=== PATIENT | female | born 1960 | race Caucasian/White ===

== ENCOUNTER → 2017-06-11 | Outpatient (CLI) | payer MEDICAID ==
[~2017-06-11] MED LIST: BENICAR HCT 12.1 TAB PO; BUPROPION HCL300 MG PO; DULOXETINE60 MG PO; FLEXERIL10 MG PO; GABAPENTIN800 MG PO; HYDROCHLOROTHIA25 M1 PO; LORTAB 5/500 501 TAB PO; LOSARTAN POTAS100 MG PO; LOSARTAN POTASS1 TA1 PO; MEDROL 4MG. DOSE4 MG PO; MELOXICAM15 MG PO; MOTRIN600 M1 PO; NAPROSYN500 M1 PO; NOMEDS; OMNICEF 300 MG300 MG PO; PREDNISONE20 MG PO; ROBAXIN-750750 MG PO; TRAMADOL 50MG T50 MG PO; VERAPAMIL HCL120 M2 PO; VITAMIN B COMPL1 CAP PO; VITAMIN D50000 I1 PO
--- NOTE | 2017-06-11 14:01 | RADIOLOGY REPORT PS360 ---
EXAM: LUMBAR SPINE 5 VIEWS HISTORY: Low back pain with numbness in the left foot and ankle LUMBAR NEURALGIA ORDERING PHYSICIAN: Constantin Call MD PATIENT AGE: 56 years COMPARISON: None FINDINGS: Degenerative disc disease is present at T11-T12 and T12-L1 as well as L1-L2, L4-L5, and L5-S1. There are small endplate osteophytes along the lower thoracic spine and at L 3. L4. No fracture or dislocation evident. No lytic or blastic change. There are mild facet arthritic changes at L5-S1. Mild osteoarthritic change involves the right SI joint. IMPRESSION: 1. Lumbar spondylosis with degenerative disc disease and facet arthritic change as described above. 2. 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
== END ==
LOC: RAD 12:49
DX: M54.16 Radiculopathy, lumbar region (principal)

== ENCOUNTER 2017-06-21 11:06 | Emergency (ER) | payer MEDICAID ==
[~2017-06-21] VITALS: Ht 157.5 cm; Wt 99.8 kg
[~2017-06-21 11:06] MED LIST changes: -BUPROPION HCL300 MG PO; -DULOXETINE60 MG PO; -GABAPENTIN800 MG PO; -LOSARTAN POTASS1 TA1 PO; -MELOXICAM15 MG PO; -NAPROSYN500 M1 PO; -ROBAXIN-750750 MG PO; -VERAPAMIL HCL120 M2 PO; -VITAMIN B COMPL1 CAP PO; -VITAMIN D50000 I1 PO
[2017-06-21] MEDS ORDERED: BUPROPION HCL300 MG PO (11:17)
[2017-06-21] MEDS ORDERED: MELOXICAM15 MG PO (11:17)
[2017-06-21] MEDS ORDERED: LOSARTAN POTASS1 TA1 PO (11:18)
[2017-06-21] MEDS ORDERED: VITAMIN D50000 I1 PO (11:18)
[2017-06-21] MEDS ORDERED: VERAPAMIL HCL120 M2 PO (11:18)
[2017-06-21] MEDS ORDERED: DULOXETINE60 MG PO (11:18)
[2017-06-21] MEDS ORDERED: GABAPENTIN800 MG PO (11:19)
[2017-06-21] MEDS ORDERED: TRAMADOL 50MG T50 MG PO (11:19)
--- OUTSIDE RECORDS SUMMARY | 2017-06-21 11:40 | External Medical Summary Rpt | CCD ---
Author Author , ANIKET MARCIAL Address Unknown Phone Care Team Providers Care Inspector [employer] Name Role Phone [employer] Unavailable Unavailable INC, [employer] Unavailable Unavailable INC, [employer] MARY HERNANDEZ Unavailable Unavailable [facility] Un[place]available [place], [facility] Unavailable Unavailable [place], [facility], Unavailable Unavailable [facility] Unavailable Unavailable [facility], [facility] Unavailable Unavailable Capo Leon MD, Unavailable Unavailable Capo Leon MD Purpose Continuity of Care Document - 04-04-2013 through 2016 Problems Code Diagnosis DOS Provider Status [id number] RADICULOPAT 05-13-2017 [facility] M797 FIBROMYALGI 05-13-2017 [facility] Z23 ENCOUNTER 05-13-2017 [facility] [place] [facility] IMMUNIZATIO INTERNAL N MED J029 ACUTE 01-07-2017 [facility] PHARYNGITIS [place] [facility] UNSPECIFIED MED D649 ANEMIA 12-17-2016 [facility] [place] E559 VITAMIN D 12-17-2016 [facility] DEFICIENCY [facility] UNSPECIFIED [place] E785 HYPERLIPIDE 12-17-2016 [facility] BILL [facility] UNSPECIFIED LA [id number] OTHER 11-06-2016 [facility] [employer] [facility] TENOSYNOVIT IS LEFT HAND M654 RADIAL 10-28-2016 [facility] ST[facility]ID [facility] TENOSYNOVIT GROUP IS SINGH I10 ESSENTIAL 06-26-2016 [facility] HYPERTENSIO [place] N [id number] Active [facility] [id number] Chronic [facility] Allergies, Adverse Reactions, Alerts Type Drug Allergy Adverse Reaction to Substance Substance Reaction Severity No Known Allergies - Unknown Unknown Nka Medications Na ND Rx Da Fi Fi Am Da Di Ph RX Ph St me C No te ll ll ou ys ag ar # ys at rm s nt no ma ic us Or Da si cy ia de te s n re d 69 09 10 8. 24 00 KE Ac T 45 -1 -0 00 00 NT ti D2 20 0- 6- 0 00 UC ve 15 20 20 88 [place] 1. 12 17 17 49 25 0 02 CV S MG PH AR (5 MA 0, CY 00 0 LL UN C, IT ) DB A CV S PH AR MA CY #0 54 37 GA 65 09 10 90 30 00 KE Ac BA 86 -1 -0 .0 00 NT ti PE 20 3- 6- 00 00 UC ve NT 52 20 20 91 [place] IN 40 17 17 50 5 94 CV 80 S 0 PH MG AR MA TA CY BL ET LL C, DB A CV S PH AR MA CY #0 54 37 TR 00 09 10 12 30 00 KE Ac AM 09 -1 -0 0. 00 NT ti AD 30 3- 6- 00 00 UC ve OL 05 20 20 0 91 [place] 80 17 17 50 HC 5 95 CV L S 50 PH AR MG MA CY TA BL LL ET C, DB A CV S PH AR MA CY #0 54 37 VE 00 09 09 30 30 00 KE Ac RA 37 -0 -2 .0 00 NT ti PA 82 3- 9- 00 00 UC ve AR 12 20 20 89 [place] L 00 17 17 51 ER 1 83 CV S 12 PH 0 AR MG MA CY TA BL LL ET C, DB A CV S PH AR MA CY #0 54 37 DU 66 09 09 30 30 00 KE Ac LO 99 -0 -2 .0 00 NT ti XE 30 3- 9- 00 00 UC ve TI 66 20 20 91 [place] NE 43 17 17 28 0 39 CV HC S L PH DR AR MA 60 CY MG LL C, CA P DB A CV S PH AR MA CY #0 54 37 BU 10 09 09 30 30 00 KE Ac HI 37 -0 -2 .0 00 NT ti OP 00 3- 9- 00 00 UC ve IO 10 20 20 91 [place] N 25 17 17 28 HC 0 40 CV L S XL PH AR 30 MA 0 CY MG LL TA C, BL ET DB A CV S PH AR MA CY #0 54 37 GA 65 08 09 90 30 00 KE Ac BA 86 -1 -0 .0 00 NT ti PE 20 1- 8- 00 00 UC ve NT 52 20 20 90 [place] IN 40 17 17 82 5 60 CV 80 S 0 PH MG AR MA TA CY BL ET LL C, DB A CV S PH AR MA CY #0 54 37 69 08 09 8. 24 00 KE Ac T 45 -1 -0 00 00 NT ti D2 20 6- 8- 0 00 UC ve 15 20 20 88 [place] 1. 12 17 17 49 25 0 02 CV S MG PH AR (5 MA 0, CY 00 0 LL UN C, IT ) DB A CV S PH AR MA CY #0 54 37 BU 10 08 09 30 30 00 KE Ac HI 37 -0 -0 .0 00 NT ti OP 00 6- 1- 00 00 UC ve IO 10 20 20 89 [place] N 25 17 17 23 HC 0 43 CV L S XL PH AR 30 MA 0 CY MG LL TA C, BL ET DB A CV S PH AR MA CY #0 54 37 DU 66 08 09 30 30 00 KE Ac LO 99 -0 -0 .0 00 NT ti XE 30 6- 1- 00 00 UC ve TI 66 20 20 89 [place] NE 43 17 17 05 0 90 CV HC S L PH DR AR MA 60 CY MG LL C, CA P DB A CV S PH AR MA CY #0 54 37 VE 00 08 09 30 30 00 KE Ac RA 37 -0 -0 .0 00 NT ti PA 82 6- 1- 00 00 UC ve AR 12 20 20 89 [place] L 00 17 17 51 ER 1 83 CV S 12 PH 0 AR MG MA CY TA BL LL ET C, DB A CV S PH AR MA CY #0 54 37 TR 00 07 08 12 30 00 KE Ac AM 09 -2 -2 0. 00 NT ti AD 30 8- 5- 00 00 UC ve OL 05 20 20 0 90 [place] 80 17 17 56 HC 5 41 CV L S 50 PH AR MG MA CY TA BL LL ET C, DB A CV S PH AR MA CY #0 54 37 ME 69 07 08 90 90 00 KE Ac LO 09 -2 -1 .0 00 NT ti XI 70 6- 8- 00 00 UC ve CA 15 20 20 88 [place] M 90 17 17 72 15 7 21 CV S MG PH AR TA MA BL CY ET LL C, DB A CV S PH AR MA CY #0 54 37 69 07 08 8. 24 00 KE Ac T 45 -2 -1 00 00 NT ti D2 20 0- 8- 0 00 UC ve 15 20 20 88 [place] 1. 12 17 17 49 25 0 02 CV S MG PH AR (5 MA 0, CY 00 0 LL UN C, IT ) DB A CV S PH AR MA CY #0 54 37 LO 68 07 08 90 90 00 KE Ac SA 18 -1 -0 .0 00 NT ti RT 00 1- 4- 00 00 UC ve AN 21 20 20 90 [place] -H [address] 9 55 CV Z S 10 PH 0- AR 25 MA CY MG LL TA C, B DB A CV S PH AR MA CY #0 54 37 VE 00 07 08 30 30 00 KE Ac RA 37 -0 -0 .0 00 NT ti PA 82 9- 4- 00 UC ve AR 12 20 20 89 [place] L 00 17 17 51 ER 1 83 CV S 12 PH 0 AR MG MA CY TA BL LL ET C, DB A CV S PH AR MA CY #0 54 37 BU 10 07 08 30 30 00 KE Ac HI 37 -0 -0 .0 00 NT ti OP 00 9- - 00 UC ve IO 10 20 20 89 [place] N 25 17 17 23 HC 0 43 CV L S XL PH AR 30 MA 0 CY MG LL TA C, BL ET DB A CV S PH AR MA CY #0 54 37 DU 66 07 08 30 30 00 KE Ac LO 99 -0 -0 .0 00 NT ti XE 30 9- - 00 UC ve TI 66 20 20 89 [place] NE 43 17 17 05 0 90 CV HC S L PH DR AR MA 60 CY MG LL C, CA P DB A CV S PH AR MA CY #0 54 37 69 06 07 8. 24 00 KE Ac T 45 -2 -2 00 00 NT ti D2 20 2- 1- 0 00 UC ve 15 20 20 88 [place] 1. 12 17 17 49 25 0 02 CV S MG PH AR (5 MA 0, CY 00 0 LL UN C, IT ) DB A CV S PH AR MA CY #0 54 37 BU 10 06 07 30 30 00 KE Ac HI 37 -1 -0 .0 00 NT ti OP 00 4- 7- 00 00 UC ve IO 10 20 20 89 [place] N 25 17 17 23 HC 0 43 CV L S XL PH AR 30 MA 0 CY MG LL TA C, BL ET DB A CV S PH AR MA CY #0 54 37 DU 66 06 07 30 30 00 KE Ac LO 99 -1 -0 .0 00 NT ti XE 30 4- 7- 00 00 UC ve TI 66 20 20 89 [place] NE 43 17 17 05 0 90 CV HC S L PH DR AR MA 60 CY MG LL C, CA P DB A CV S PH AR MA CY #0 54 37 VE 68 06 06 30 30 00 KE Ac RA 46 -0 -3 .0 00 NT ti PA 20 4- 0- 00 00 UC ve AR 29 20 20 89 [place] L 20 17 17 51 ER 1 83 CV S 12 PH 0 AR MG MA CY TA BL LL ET C, DB A CV S PH AR MA CY #0 54 37 69 05 06 8. 24 00 KE Ac T 45 -2 -2 00 00 NT ti D2 20 7- 3- 0 00 UC ve 15 20 20 88 [place] 1. 12 17 17 49 25 0 02 CV S MG PH AR (5 MA 0, CY 00 0 LL UN C, IT ) DB A CV S PH AR MA CY #0 54 37 BU 10 05 06 30 30 00 KE Ac HI 37 -1 -1 .0 00 NT ti OP 00 9- 6- 00 00 UC ve IO 10 20 20 89 [place] N 25 17 17 23 HC 0 43 CV L S XL PH AR 30 MA 0 CY MG LL TA C, BL ET DB A CV S PH AR MA CY #0 54 37 TR 00 05 06 12 30 00 KE Ac AM 09 -1 -1 0. 00 NT ti AD 30 9- 6- 00 00 UC ve OL 05 20 20 0 89 [place] 80 17 17 23 HC 5 98 CV L S 50 PH AR MG MA CY TA BL LL ET C, DB A CV S PH AR MA CY #0 54 37 69 05 06 8. 24 00 KE Ac T 45 -0 -0 00 00 NT ti D2 20 6- 2- 0 00 UC ve 15 20 20 88 [place] 1. 12 17 17 49 25 0 02 CV S MG PH AR (5 MA 0, CY 00 0 LL UN C, IT ) DB A CV S PH AR MA CY #0 54 37 TR 50 05 06 30 30 00 KE Ac AZ 11 -0 -0 .0 00 NT ti OD 10 5- 2- 00 00 UC ve ON 44 20 20 86 [place] E 10 17 17 75 15 1 63 CV 0 S MG PH AR TA MA BL CY ET LL C, DB A CV S PH AR MA CY #0 54 37 VE 68 05 06 30 30 00 KE Ac RA 46 -0 -0 .0 00 NT ti PA 20 8- 2- 00 00 UC ve AR 29 20 20 87 [place] L 20 17 17 71 ER 1 37 CV S 12 PH 0 AR MG MA CY TA BL LL ET C, DB A CV S PH AR MA CY #0 54 37 GA 65 05 06 90 30 00 KE Ac BA 86 -0 -0 .0 00 NT ti PE 20 5- 2- 00 00 UC ve NT 52 20 20 87 [place] IN 40 17 17 71 5 36 CV 80 S 0 PH MG AR MA TA CY BL ET LL C, DB A CV S PH AR MA CY #0 54 37 PE 00 05 06 21 7 00 KE Ac NI 09 -1 -0 .0 00 NT ti CI 31 0- 2- 00 00 UC ve LL 17 20 20 89 [place] IN 41 17 17 05 0 89 CV VK S PH 50 AR 0 MA MG CY TA LL BL C, ET DB A CV S PH AR MA CY #0 54 37 DU 66 05 06 30 30 00 KE Ac LO 99 -1 -0 .0 00 NT ti XE 30 0- 2- 00 00 UC ve TI 66 20 20 89 [place] NE 43 17 17 05 0 90 CV HC S L PH DR AR MA 60 CY MG LL C, CA P DB A CV S PH AR MA CY #0 54 37 ME 69 04 05 90 90 00 KE Ac LO 09 -2 -1 .0 00 NT ti XI 70 4- 9- 00 00 UC ve CA 15 20 20 88 [place] M 90 17 17 72 15 7 21 CV S MG PH AR TA MA BL CY ET LL C, DB A CV S PH AR MA CY #0 54 37 DU 66 04 05 30 30 00 KE Ac LO 99 -1 -1 .0 00 NT ti XE 30 3- 2- 00 00 UC ve TI 66 20 20 88 [place] NE 43 17 17 48 0 81 CV HC S L PH DR AR MA 60 CY MG LL C, CA P DB A CV S PH AR MA CY #0 54 37 GA 65 04 05 90 30 00 KE Ac BA 86 -0 -0 .0 00 NT ti PE 20 6- 5- 00 00 UC ve NT 52 20 20 87 [place] IN 40 17 17 71 5 36 CV 80 S 0 PH MG AR MA TA CY BL ET LL C, DB A CV S PH AR MA CY #0 54 37 LO 68 04 05 90 90 00 KE Ac SA 18 -0 -0 .0 00 NT ti RT 00 6- 5- 00 00 UC ve AN 21 20 20 86 [place] -H [address] 9 13 CV Z S 10 PH 0- AR 25 MA CY MG LL TA C, B DB A CV S PH AR MA CY #0 54 37 VE 68 04 05 30 30 00 KE Ac RA 46 -0 -0 .0 00 NT ti PA 20 6- 5- 00 00 UC ve AR 29 20 20 87 [place] L 20 17 17 71 ER 1 37 CV S 12 PH 0 AR MG MA CY TA BL LL ET C, DB A CV S PH AR MA CY #0 54 37 BU 10 04 05 30 30 00 KE Ac HI 37 -1 -0 .0 00 NT ti OP 00 2- 5- 00 00 UC ve IO 10 20 20 87 [place] N 25 17 17 84 HC 0 28 CV L S XL PH AR 30 MA 0 CY MG LL TA C, BL ET DB A CV S PH AR MA CY #0 54 37 69 04 05 8. 24 00 KE Ac T 45 -1 -0 00 00 NT ti D2 20 2- 5- 0 00 UC ve 15 20 20 88 [place] 1. 12 17 17 49 25 0 02 CV S MG PH AR (5 MA 0, CY 00 0 LL UN C, IT ) DB A CV S PH AR MA CY #0 54 37 TR 00 03 04 12 30 00 KE Ac AM 09 -2 -2 0. 00 NT ti AD 30 3- 8- 00 00 UC ve OL 05 20 20 0 88 [place] 80 17 17 03 HC 5 95 CV L S 50 PH AR MG MA CY TA BL LL ET C, DB A CV S PH AR MA CY #0 54 37 TR 50 03 04 30 30 00 KE Ac AZ 11 -2 -2 .0 00 NT ti OD 10 9- 1- 00 00 UC ve ON 44 20 20 86 [place] E 10 17 17 75 15 1 63 CV 0 S MG PH AR TA MA BL CY ET LL C, DB A CV S PH AR MA CY #0 54 37 BU 10 03 04 30 30 00 KE Ac HI 37 -1 -0 .0 00 NT ti OP 00 4- 7- 00 00 UC ve IO 10 20 20 87 [place] N 25 17 17 84 HC 0 28 CV L S XL PH AR 30 MA 0 CY MG LL TA C, BL ET DB A CV S PH AR MA CY #0 54 37 GA 65 03 03 90 30 00 KE Ac BA 86 -0 -3 .0 00 NT ti PE 20 8- 1- 00 00 UC ve NT 52 20 20 87 [place] IN 40 17 17 71 5 36 CV 80 S 0 PH MG AR MA TA CY BL ET LL C, DB A CV S PH AR MA CY #0 54 37 VE 00 03 03 30 30 00 KE Ac RA 37 -0 -3 .0 00 NT ti PA 82 8- 1- 00 00 UC ve AR 12 20 20 87 [place] L 00 17 17 71 ER 1 37 CV S 12 PH 0 AR MG MA CY TA BL LL ET C, DB A CV S PH AR MA CY #0 54 37 IB 67 02 03 30 8 00 KE Ac UP 87 -1 -1 .0 00 NT ti RO 70 6- 7- 00 00 UC ve FE 32 20 20 87 [place] N 00 17 17 28 60 5 42 CV 0 S MG PH AR TA MA BL CY ET LL C, DB A CV S PH AR MA CY #0 54 37 TR 50 02 03 30 30 00 KE Ac AZ 11 -2 -1 .0 00 NT ti OD 10 1- 7- 00 00 UC ve ON 44 20 20 86 [place] E 10 17 17 75 15 1 63 CV 0 S MG PH AR TA MA BL CY ET LL C, DB A CV S PH AR MA CY #0 54 37 TR 00 02 03 12 30 00 KE Ac AM 09 -2 -1 0. 00 NT ti AD 30 1- 7- 00 00 UC ve OL 05 20 20 0 87 [place] 80 17 17 37 HC 5 53 CV L S 50 PH AR MG MA CY TA BL LL ET C, DB A CV S PH AR MA CY #0 54 37 HY 00 02 03 [address] 60 -1 -1 .0 00 NT ti OC 33 6- 7- 00 00 UC ve OD 89 20 20 87 [place] ON 12 17 17 28 -A 1 41 CV CE S TA PH AR AR NO MA PH CY 7. LL 5- C, 32 5 DB A CV S PH AR MA CY #0 54 37 BU 10 02 03 30 30 00 KE Ac HI 37 -1 -1 .0 00 NT ti OP 00 5- 0- 00 00 UC ve IO 10 20 20 86 [place] N 25 17 17 03 HC 0 13 CV L S XL PH AR 30 MA 0 CY MG LL TA C, BL ET DB A CV S PH AR MA CY #0 54 37 VE 00 02 03 30 30 00 KE Ac RA 37 -0 -0 .0 00 NT ti PA 82 8- 3- 00 00 UC ve AR 12 20 20 86 [place] L 00 17 17 45 ER 1 12 CV S 12 PH 0 AR MG MA CY TA BL LL ET C, DB A CV S PH AR MA CY #0 54 37 GA 68 02 03 90 30 00 KE Ac BA 46 -0 -0 .0 00 NT ti PE 20 8- 3- 00 00 UC ve NT 12 20 20 86 [place] IN 70 17 17 45 5 10 CV 80 S 0 PH MG AR MA TA CY BL ET LL C, DB A CV S PH AR MA CY #0 54 37 AD 49 01 02 0. 1 00 KE Ac AC 28 -2 -1 50 00 NT ti EL 10 0- 7- 0 00 UC ve 40 20 20 86 [place] TD 01 17 17 68 AP 5 02 CV S SY PH RI AR NG MA E CY LL C, DB A CV S PH AR MA CY #0 54 37 TR 50 01 02 30 30 00 KE Ac AZ 11 -2 -1 .0 00 NT ti OD 10 3- 7- 00 00 UC ve ON 44 20 20 86 [place] E 10 17 17 75 15 1 63 CV 0 S MG PH AR TA MA BL CY ET LL C, DB A CV S PH AR MA CY #0 54 37 BU 10 01 02 30 30 00 KE Ac HI 37 -1 -1 .0 00 NT ti OP 00 9- 7- 00 00 UC ve IO 10 20 20 86 [place] N 25 17 17 03 HC 0 13 CV L S XL PH AR 30 MA 0 CY MG LL TA C, BL ET DB A CV S PH AR MA CY #0 54 37 ME 69 01 02 90 90 00 KE Ac LO 09 -1 -1 .0 00 NT ti XI 70 7- 0- 00 00 UC ve CA 15 20 20 86 [place] M 90 17 17 62 15 7 12 CV S MG PH AR TA MA BL CY ET LL C, DB A CV S PH AR MA CY #0 54 37 GA 69 01 02 90 30 00 KE Ac BA 36 -0 -0 .0 00 NT ti PE 70 9- 3- 00 00 UC ve NT 13 20 20 86 [place] IN 50 17 17 45 6 10 CV 80 S 0 PH MG AR MA TA CY BL ET LL C, DB A CV S PH AR MA CY #0 54 37 VE 00 01 02 30 30 00 KE Ac RA 37 -0 -0 .0 00 NT ti PA 82 9- 3- 00 00 UC ve AR 12 20 20 86 [place] L 00 17 17 45 ER 1 12 CV S 12 PH 0 AR MG MA CY TA BL LL ET C, DB A CV S PH AR MA CY #0 54 37 LO 68 01 02 90 90 00 KE Ac SA 18 -0 -0 .0 00 NT ti RT 00 3 00 UC ve AN 21 20 20 86 [place] -H [address] 9 13 CV Z S 10 PH 0- AR 25 MA CY MG LL TA C, B DB A CV S PH AR MA CY #0 54 37 TR 00 12 01 12 30 00 KE Ac AM 09 -1 -1 0. 00 NT ti AD 30 9- 3 00 UC ve OL 05 20 20 0 86 [place] 80 16 17 03 HC 5 21 CV L S 50 PH AR MG MA CY TA BL LL ET C, DB A CV S PH AR MA CY #0 54 37 ON 68 12 01 12 30 00 KE Ac DA 46 -1 -1 .0 00 NT ti NS 20 3 00 UC ve ET 10 20 20 86 [place] RO 53 16 17 03 N 0 14 CV HC S L PH 4 AR MG MA CY TA BL LL ET C, DB A CV S PH AR MA CY #0 54 37 BU 10 12 01 30 30 00 KE Ac HI 37 -1 -1 .0 00 NT ti OP 00 3 00 UC ve IO 10 20 20 86 [place] N 25 16 17 03 HC 0 13 CV L S XL PH AR 30 MA 0 CY MG LL TA C, BL ET DB A CV S PH AR MA CY #0 54 37 TR 50 12 01 30 30 00 KE Ac AZ 11 -1 -1 .0 00 NT ti OD 10 9- 3- 00 UC ve ON 44 20 20 86 [place] E 10 16 17 02 15 1 94 CV 0 S MG PH AR TA MA BL CY ET LL C, DB A CV S PH AR MA CY #0 54 37 HI 00 12 01 0. 1 00 KE Ac EV 00 -1 -0 50 00 NT ti NA 51 4- 9- 0 00 UC ve R 97 20 20 85 [place] 13 10 16 17 93 2 23 CV SY S RI PH NG AR E MA CY LL C, DB A CV S PH AR MA CY #0 54 37 VE 00 12 01 30 30 00 WA Ac RA 59 -0 -0 .0 00 L- ti PA 12 07 MA ve AR 88 20 20 44 RT L 00 16 17 54 SR 1 44 PH AR 12 MA 0 CY MG #5 CA 91 PS UL E LO 68 12 01 30 30 00 WA Ac SA 18 -0 -0 .0 00 L- ti RT 00 07 MA ve AN 21 20 20 44 RT -H [address] 9 43 PH Z AR 10 MA 0- CY 25 #5 MG 91 TA B ME 54 12 01 30 30 00 WA Ac LO 45 -0 -0 .0 00 L- ti XI 80 07 MA ve CA 96 20 20 43 RT M 41 16 17 11 15 0 00 PH AR MG MA CY TA BL #5 ET 91 HI 00 08 0 No OH 27 -0 AN 01 6- Lo CE 11 20 ng 14 13 er 27 5 9. Ac 3 ti MG ve /M L SY RI NG E Sa 63 08 1 No li 80 -0 ne 70 5- Lo 10 20 ng Fl 07 13 er us 5 h Ac 10 ti ML ve Sy ri ng e HY [address] 40 -0 OM 91 5- Lo OR 31 20 ng PH 23 13 er ON 0 E Ac 2 ti MG ve /M L CA RP UJ CT CL 51 08 1 No OP 07 -0 ID 90 5- Lo OG 55 20 ng RE 72 13 er L 0 75 Ac ti MG ve TA BL ET MA 00 08 1 No PA 90 -0 P 41 5- Lo 32 98 20 ng 5 26 13 er MG 1 Ac TA ti BL ve ET 66 08 0 No PI 55 -0 RI 30 5- Lo N 00 20 ng 32 10 13 er 5 1 MG Ac ti TA ve BL ET AV 00 08 1 No AP 08 -0 RO 72 5- Lo 77 20 ng 15 23 13 er 0 1 MG Ac ti TA ve BL ET CL 00 08 1 No ON 90 -0 ID 45 5- Lo IN 65 20 ng E 66 13 er HC 1 L Ac 0. ti 1 ve MG TA BL ET Ib 62 08 1 No up 58 -0 ro 40 5- Lo fe 74 20 ng n 70 13 er 60 1 0M Ac G ti Ta ve bl et AP 00 08 1 No AP 40 -0 /H 60 5- Lo YD 36 20 ng RO 56 13 er CO 2 DO Ac NE ti ve 32 5 MG -5 MG Immunization Name Date Rout CVX Reac Dose Comm Prov Is Faci e tion ent ider Refu lity Give sed n IIV4 09-1 158 RHONDA No LICK 3-20 ON ING VACC 17 VALL EY SPLI INTE T RNAL VIRU MED S 0.5 ML DOS FOR IM USE Vital Signs 04-05-2013 17:54 Name Value Interpretat Reference Comment ion Range Body 97.8 [degF] Temperature BP 70 mm[Hg] Diastolic BP Systolic 119 mm[Hg] Heart 83 /min Rate/Pulse Respiratory 20 /min Rate 04-05-2013 15:42 Name Value Interpretat Reference Comment ion Range O2% 97 % 04-04-2013 15:48 Name Value Interpretat Reference Comment ion Range Height 157.48 cm Weight 111.585 kg Measured 04-04-2013 09:54 Name Value Interpretat Reference Comment ion Range Body 98.2 [degF] Temperature BP 93 mm[Hg] Diastolic BP Systolic 153 mm[Hg] Heart 89 /min Rate/Pulse O2% 98 % Respiratory 20 /min Rate Weight 0 [oz_av] Measured Results Labs Lab Lab Date Result Refere Interp Status Commen Order Detail nces retati t Range on COMPREHENSIVE METABOLIC PANEL (04-04-2013 10:05) Glucose 106 74-106 complet 013 mg/dL ed Bld-mCn 10:05 c BUN 15 7-18 complet Bld-mCn 013 mg/dL ed c 10:05 Creat 1.1 0.6-1.0 complet SerPl-m 013 mg/dL ed Cnc 10:05 ESTIMAT 104 50-200 complet ED 013 ML/MIN ed CREATIN 10:05 INE CLEARAN CE GFR 52 59- complet (ESTIMA 013 ML/MIN ed ALFREDO) 10:05 Sodium 138 136-145 complet SerPl-s 013 mmoL/L ed Cnc 10:05 Potassi 3.7 3.5-5.1 complet um 013 mmoL/L ed SerPl-s 10:05 Cnc Chlorid 99 98-107 complet e 013 mmoL/L ed SerPl-s 10:05 Cnc CO2 32 21.0-32 complet SerPl-s 013 mmoL/L .0 ed Cnc 10:05 Calcium 08-05-2 8.9 8.5-10. complet 013 mg/dL 1 ed SerPl-m 10:05 Cnc Prot 7.8 6.4-8.2 complet SerPl-m 013 gm/dL ed Cnc 10:05 Albumin 3.6 3.4-5.0 complet 013 gm/dL ed SerPl-m 10:05 Cnc Globuli 4.2 1.3-3.2 complet n 013 gm/dL ed Ser-mCn 10:05 c Albumin 0.9 UNK 1.1-1.8 complet /Glob 013 ed SerPl-m 10:05 Rto Bilirub 0.7 0.2-1.0 complet 013 mg/dL ed SerPl-m 10:05 Cnc AST 17 U/L 15-37 complet SerPl-c 013 ed Cnc 10:05 ALT 57 U/L 30-65 complet SerPl-c 013 ed Cnc 10:05 ALP 79 U/L 50-136 complet SerPl-c 013 ed Cnc 10:05 TROPONIN I (04-04-2013 10:05) TROPONI 04-04- Less 0.00-0. complet N I 013 than 06 ed 10:05 0.02 ng/mL THYROID STIM HORMONE (04-04-2013 10:05) THYROID 1.66 0.358-3 complet STIM 013 uIU/ml .740 ed HORMONE 10:05 CBC with AUTO DIFF (04-04-2013 10:05) WBC # 04-04-2 12.5 4.8-10. complet Bld 013 K/MM3 8 ed Auto 10:05 RBC # 04-04-2 4.97 4.2-5.4 complet Bld 013 M/mm3 ed Auto 10:05 Hgb 04-04- 14.5 12.2-16 complet Bld-mCn 013 g/dL .2 ed c 10:05 Hct Fr 44.3 % 37.0-47 complet Bld 013 .0 ed 10:05 MCV RBC 89.2 fl 82.2-97 complet 013 .8 ed 10:05 MCH RBC 29.1 pg 27-31.2 complet Qn 013 ed Auto 10:05 MEAN 08-05-2 32.6 31.8-35 complet CORPUSC 013 g/dl .4 ed ULAR 10:05 HGB CONC RDW RBC 08-05-2 13.9 % 11.5-17 complet Auto 013 .5 ed 10:05 Platele 08-05-2 392 142-424 complet t Bld 013 K/mm3 ed Ql 10:05 Manual MEAN 05-2 7.3 fl 7.4-10. complet PLATELE 013 4 ed T 10:05 VOLUME Granulo 08-05-2 73.7 % 37.0-80 complet cytes 013 .0 ed Fr Bld 10:05 Auto LYMPH % 08-05-2 20.2 % 10-50.0 complet 013 ed 10:05 Monocyt 08-05-2 4.3 % 1.7-9.3 complet es Fr 013 ed Bld 10:05 Auto Eosinop 08-05-2 1.3 % 0.1-12. complet hil Fr 013 0 ed Bld 10:05 Auto Basophi 08-05-2 0.6 % 0.1-2.0 complet ls Fr 013 ed Bld 10:05 Auto Granulo 08-05-2 9.2 1.8-7.8 complet cytes # 013 K/mm3 ed Bld 10:05 Auto Lymphoc 08-05-2 2.5 0.7-4.5 complet ytes Fr 013 K/mm3 ed Bld 10:05 Auto Monocyt 08-05-2 0.5 0.1-1.0 complet es # 013 K/mm3 ed Bld 10:05 Auto Eosinop 08-05-2 0.2 0.0-0.4 complet hil # 013 K/mm3 ed Bld 10:05 Auto Basophi 08-05-2 0.1 0-0.2 complet ls # 013 K/MM3 ed Bld 10:05 Auto Procedures Procedure DOS Code Location Performer Comment IIV4 VACC 46572 [facility] SPLIT 7 [facility] VIRUS 0.5 INTERNAL ML DOS MED FOR IM USE IM ADM 19390 [facility] PRQ ID 7 [facility] SUBQ/IM INTERNAL NJXS 1 MED VACCINE COMPREHEN 49900 COMBINED COMBINED SIVE 7 PHYSICIAN PHYSICIAN METABOLIC S LA S LA PANEL 25 43863 COMBINED COMBINED HYDROXY 7 PHYSICIAN PHYSICIAN INCLUDES S LA S LA FRACTIONS IF PERFORMED LIPID 57101 COMBINED COMBINED PANEL 7 PHYSICIAN PHYSICIAN S [place] S [place] BLOOD 14025 COMBINED COMBINED COUNT 7 PHYSICIAN PHYSICIAN COMPLETE S LA S LA AUTO&AUTO DIFRNTL WBC WRIST [id number] [facility] HAND 7 TECHNOLOG TECHNOLOG FINGR IES INC IES INC ORTHOS W/O JNT PREFAB CSTM FIT COMPREHEN 55046 COMBINED COMBINED SIVE 6 PHYSICIAN PHYSICIAN METABOLIC S LA S LA PANEL LIPID 57121 COMBINED COMBINED PANEL 6 PHYSICIAN PHYSICIAN S LA S LA 25 84995 COMBINED COMBINED HYDROXY 6 PHYSICIAN PHYSICIAN INCLUDES S LA S LA FRACTIONS IF PERFORMED Encounters Encounter Start End Date Code Location Performer Type Date OFFICE 13641 [facility] 7 7 [facility] T VISIT INTERNAL 15 MED MINUTES OFFICE 54726 [facility] 7 7 [facility] T VISIT INTERNAL 15 MED MINUTES OFFICE 91791 [facility] OUT[facility] 7 7 PHYSICIAN T VISIT S GROUP 10 MINUTES Inpatient MARY GRACE Leon ([place]) 3 10:09 3 [facility]
--- OUTSIDE RECORDS SUMMARY | 2017-06-21 11:40 | External Medical Summary Rpt | CCD ---
Author Author , ANIKET MARCIAL Address Unknown Phone Care Team Providers Care World Travel Counselor Name Role Phone [employer] Unavailable Unavailable INC, [employer] Unavailable Unavailable INC, [employer] MARY HERNANDEZ Unavailable Unavailable [facility] [place]available [place], [facility] [place] [facility] Unavailable Unavailable [place], [facility] [place] [facility], Unavailable Unavailable [facility] Unavailable Unavailable INTERNAL [...] N MED J029 ACUTE 01-07-2017 [facility] INTERNAL UNSPECIFIED MED D649 ANEMIA 12-17-2016 [facility] U[place]PECIFIED PHYSICIANS [place] E559 VITAMIN D 12-17-2016 [facility] DEFICIENCY PHYSICIANS UNSPECIFIED [place] E785 HYPERLIPIDE 12-17-2016 [facility] BILL PHYSICIANS UNSPECIFIED LA [id number] OTHER 11-06-2016 [facility] AND S INC TENOSYNOVIT IS LEFT HAND M654 RADIAL 10-28-2016 [facility] STY[facility]YSICIANS TENOSYNOVIT GROUP IS SINGH I10 ESSENTIAL 06-26-2016 [facility] PRIMARY [facility] HYPERTENSIO [place] N [id number] Active [facility] [id number] Chronic [facility] Allergies, Adverse Reactions, Alerts Type Drug Allergy [...] 82 3- 9- 00 00 UC ve CO 12 20 20 89 [place] L 00 [...] 09 09 30 30 00 KE Ac ND 37 -0 -2 .0 00 NT ti [...] 08 09 30 30 00 KE Ac ND 37 -0 -0 .0 00 NT ti [...] 82 6- 1- 00 00 UC ve CO 12 20 20 89 [place] L 00 [...] PA 82 9- 4- 00 UC ve CO 12 20 20 89 [place] L 00 17 17 51 ER 1 83 CV S 12 PH 0 AR MG MA CY TA BL LL ET C, DB A CV S PH AR MA CY #0 54 37 BU 10 07 08 30 30 00 KE Ac ND 37 -0 -0 .0 00 NT ti [...] 06 07 30 30 00 KE Ac ND 37 -1 -0 .0 00 NT ti [...] 20 4- 0- 00 00 UC ve CO 29 20 20 89 [place] L 20 [...] 05 06 30 30 00 KE Ac ND 37 -1 -1 .0 00 NT ti [...] 20 8- 2- 00 00 UC ve CO 29 20 20 87 [place] L 20 [...] 20 6- 5- 00 00 UC ve CO 29 20 20 87 [place] L 20 17 17 71 ER 1 37 CV S 12 PH 0 AR MG MA CY TA BL LL ET C, DB A CV S PH AR MA CY #0 54 37 BU 10 04 05 30 30 00 KE Ac ND 37 -1 -0 .0 00 NT ti [...] 03 04 30 30 00 KE Ac ND 37 -1 -0 .0 00 NT ti [...] 82 8- 1- 00 00 UC ve CO 12 20 20 87 [place] L 00 [...] 1 41 CV CE S TA PH CO AR NO MA PH CY 7. LL 5- C, 32 5 DB A CV S PH AR MA CY #0 54 37 BU 10 02 03 30 30 00 KE Ac ND 37 -1 -1 .0 00 NT ti [...] 82 8- 3- 00 00 UC ve CO 12 20 20 86 [place] L 00 [...] 01 02 30 30 00 KE Ac ND 37 -1 -1 .0 00 NT ti [...] 82 9- 3- 00 00 UC ve CO 12 20 20 86 [place] L 00 [...] 12 01 30 30 00 KE Ac ND 37 -1 -1 .0 00 NT ti [...] PH AR MA CY #0 54 37 ND 00 12 01 0. 1 00 KE [...] L- ti PA 12 07 MA ve CO 88 20 20 44 RT L 00 [...] MA CY TA BL #5 ET 91 ND 00 08 0 No OH 27 -0 [...] DOS Code Location Performer Comment IIV4 VACC 18545 [facility] SPLIT 7 [facility] VIRUS 0.5 INTERNAL ML DOS MED FOR IM USE IM ADM 84965 [facility] PRQ ID 7 [facility] SUBQ/IM INTERNAL NJXS 1 MED VACCINE COMPREHEN 62112 COMBINED COMBINED SIVE 7 PHYSICIAN PHYSICIAN METABOLIC S LA S LA PANEL 25 43254 COMBINED COMBINED HYDROXY 7 PHYSICIAN PHYSICIAN INCLUDES S LA S LA FRACTIONS IF PERFORMED LIPID 52342 COMBINED COMBINED PANEL 7 PHYSICIAN PHYSICIAN S LA S LA BLOOD 41926 COMBINED COMBINED COUNT 7 PHYSICIAN PHYSICIAN COMPLETE S LA S LA AUTO&AUTO DIFRNTL WBC WRIST L3807 [facility]ANCED ADVANCED HAND 7 TECHNOLOG TECHNOLOG FINGR IES INC IES INC ORTHOS W/O JNT PREFAB CSTM FIT COMPREHEN 35239 COMBINED COMBINED SIVE 6 PHYSICIAN PHYSICIAN METABOLIC S LA S LA PANEL LIPID 07527 COMBINED COMBINED PANEL 6 PHYSICIAN PHYSICIAN S LA S LA 25 18571 COMBINED COMBINED HYDROXY 6 PHYSICIAN PHYSICIAN INCLUDES S LA S LA FRACTIONS IF PERFORMED Encounters Encounter Start End Date Code Location Performer Type Date OFFICE 77793 [facility] 7 7 [facility] T VISIT INTERNAL 15 MED MINUTES OFFICE 77860 [facility] 7 7 VALLEY T VISIT INTERNAL 15 MED MINUTES OFFICE 43615 [facility] OUTPATIEN 7 7 PHYSICIAN T VISIT S GROUP 10 MINUTES Inpatient MARY GRACE Leon ([place]) 3 10:09 3 18:00 [facility]
--- OUTSIDE RECORDS SUMMARY | 2017-06-21 11:43 | External Medical Summary Rpt | CCD ---
Author Author , ANIKET MARCIAL Address Unknown Phone [email or web address] Care Team Providers Care Wheel Alignment Technician Name Role Phone [employer] Unavailable Unavailable INC, [employer] Unavailable Unavailable INC, [employer] MARY HERNANDEZ Unavailable Unavailable [facility] [place]available [place], [facility] [place] [facility] Unavailable Unavailable [place], [facility] [place] [facility], Unavailable Unavailable [facility] Unavailable Unavailable [facility], [facility] PETTEY, PETTEWendie Unavailable Unavailable Purpose Continuity of Care Document - 06-26-2016 through 2016 Problems Code Diagnosis DOS Provider Status M5416 RADICULOPAT 05-13-2017 [facility] INTERNAL MED M797 FIBROMYALGI 05-13-2017 [facility] INTER[facility] MED Z23 ENCOUNTER 05-13-2017 [facility] IMMUNIZATIO INTERNAL N MED J029 ACUTE 01-07-2017 [facility] INTERNAL UNSPECIFIED MED D649 ANEMIA 12-17-2016 [facility] UNSPECIFIED PHYSICIANS [place] E559 VITAMIN D 12-17-2016 COM[facility]ED DEFICIENCY PHYSICIANS UNSPECIFIED LA E785 HYPERLIPIDE 12-17-2016 [facility] BILL PHYSICIANS UNSPECIFIED LA [id number] OTHER 11-06-2016 [facility] AND S INC TENOSYNOVIT IS LEFT HAND M654 RADIAL 10-28-2016 [facility] TENOSYNOVIT GROUP IS DE QUERVAIN I10 ESSENTIAL 06-26-2016 [facility] PRIMARY [facility] HYPERTENSIO LA N Medications Na ND Rx Da Fi Fi [...] 82 3- 9- 00 00 UC ve [place] 12 20 20 89 [place] L 00 [...] 09 09 30 30 00 KE Ac MA 37 -0 -2 .0 00 NT ti [...] 08 09 30 30 00 KE Ac MA 37 -0 -0 .0 00 NT ti [...] 82 6- 1- 00 00 UC ve [place] 12 20 20 89 [place] L 00 [...] NT ti PA 82 9- 4- 00 00 UC ve [place] 12 20 20 89 [place] L 00 17 17 51 ER 1 83 CV S 12 PH 0 AR MG MA CY TA BL LL ET C, DB A CV S PH AR MA CY #0 54 37 BU 10 07 08 30 30 00 KE Ac MA 37 -0 -0 .0 00 NT ti OP 00 9- 4- 00 00 UC ve IO 10 20 [...] .0 00 NT ti XE 30 9- 4- 00 00 UC ve TI 66 20 [...] 06 07 30 30 00 KE Ac MA 37 -1 -0 .0 00 NT ti [...] 20 4- 0- 00 00 UC ve OH 29 20 20 89 KY L 20 [...] 05 06 30 30 00 KE Ac MA 37 -1 -1 .0 00 NT ti [...] 20 8- 2- 00 00 UC ve OH 29 20 20 87 [place] L 20 [...] 04 05 30 30 00 KE Ac MA 37 -1 -0 .0 00 NT ti [...] 20 6- 5- 00 00 UC ve [place] 29 20 20 87 [place] L 20 [...] 03 04 30 30 00 KE Ac MA 37 -1 -0 .0 00 NT ti [...] 82 8- 1- 00 00 UC ve [place] 12 20 20 87 [place] L 00 [...] 1 41 CV CE S TA PH OH AR NO MA PH CY 7. LL [...] 02 03 30 30 00 KE Ac MA 37 -1 -1 .0 00 NT ti [...] 82 8- 3- 00 00 UC ve OH 12 20 20 86 [place] L 00 [...] 01 02 30 30 00 KE Ac MA 37 -1 -1 .0 00 NT ti [...] 82 9- 3- 00 00 UC ve OH 12 20 20 86 [place] L 00 17 17 45 ER 1 12 CV S 12 PH 0 AR MG MA CY TA BL LL ET C, DB A CV S PH AR MA CY #0 54 37 LO 68 01 02 90 90 00 KE Ac SA 18 -0 -0 .0 00 NT ti RT 00 9- 3- 00 00 UC ve AN 21 20 20 86 [place] -H [address] 9 13 CV Z S 10 PH 0- AR 25 MA CY MG LL TA C, B DB A CV S PH AR MA CY #0 54 37 TR 50 12 01 30 00 KE Ac AZ 11 -1 -1 .0 00 NT ti OD 10 00 UC ve ON 44 20 20 86 KY E 10 16 17 02 15 1 94 CV 0 S MG PH AR TA MA BL CY ET LL C, DB A CV S PH AR MA CY #0 54 37 BU 10 12 09 29 29 00 KE Ac MA 37 -1 -1 .0 00 NT ti OP 00 00 UC ve IO 10 20 20 86 KY N 25 16 17 03 HC 0 13 CV L S XL PH AR 30 MA 0 CY MG LL TA C, BL ET DB A CV S PH AR MA CY #0 54 37 ON 68 12 09 11 30 00 KE Ac DA 46 -1 -1 .0 00 NT ti NS 20 00 UC ve ET 10 20 20 86 [place] RO 53 16 17 03 N 0 14 CV HC S L PH 4 AR MG MA CY TA BL LL ET C, DB A CV S PH AR MA CY #0 54 37 TR 00 12 09 11 30 00 KE Ac AM 09 -1 -1 0. 00 NT ti AD 30 00 UC ve OL 05 20 20 0 86 [place] 80 16 17 03 HC 5 21 CV L S 50 PH AR MG MA CY TA BL LL ET C, DB A CV S PH AR MA CY #0 54 37 VE 00 12 09 29 30 00 WA Ac RA 59 -0 -0 .0 00 L- ti PA 12 07 MA ve OH 88 20 20 44 RT L 00 16 17 54 SR 1 44 PH AR 12 MA 0 CY MG #5 CA 91 PS UL E LO 68 12 09 29 29 00 WV Ac SA 18 -0 -0 .0 00 L- ti RT 00 07 MA ve AN 21 20 20 44 RT -H [address] 9 43 PH Z AR 10 MA 0- CY 25 #5 MG 91 TA B ME 54 12 09 29 30 00 WA Ac LO 45 -0 -0 .0 00 L- ti XI 80 07 MA ve CA 96 20 20 43 RT M 41 16 17 11 15 0 00 PH AR MG MA CY TA BL #5 ET 91 MA 00 12 01 0. 1 00 KE Ac EV 00 -1 -0 50 00 NT ti NA 51 4- 9- 0 00 UC ve R 97 20 20 85 [place] 13 10 16 17 93 2 23 CV SY S RI PH NG AR E MA CY LL C, DB A CV S PH AR MA CY #0 54 37 Immunization Name Date Rout CVX Reac Dose Comm Prov Is Faci e tion ent ider Refu lity Give sed n IIV4 05-01 158 RHONDA No LICK 3-20 ON ING VACC 17 VALL EY SPLI INTE T RNAL VIRU MED S 0.5 ML DOS FOR IM USE Procedures Procedure DOS Code Location Performer Comment IIV4 VACC 24308 [facility] SPLIT 7 [facility] VIRUS 0.5 INTERNAL ML DOS MED FOR IM USE IM ADM 49915 [facility] PRQ ID 7 [facility] SUBQ/IM INTERNAL NJXS 1 MED VACCINE BLOOD 41229 COMBINED COMBINED COUNT 7 PHYSICIAN PHYSICIAN COMPLETE S LA S LA AUTO&AUTO DIFRNTL WBC COMPREHEN 62743 COMBINED COMBINED SIVE 7 PHYSICIAN PHYSICIAN METABOLIC S LA S LA PANEL LIPID 20337 COMBINED COMBINED PANEL 7 PHYSICIAN PHYSICIAN S LA S LA 25 93951 COMBINED COMBINED HYDROXY 7 PHYSICIAN PHYSICIAN INCLUDES S LA S LA FRACTIONS IF PERFORMED WRIST L3807 [employer] 7 TECHNOLOG TECHNOLOG FINGR IES INC IES INC ORTHOS W/O JNT PREFAB CSTM FIT COMPREHEN 92497 COMBINED COMBINED SIVE 6 PHYSICIAN PHYSICIAN METABOLIC S LA S LA PANEL 25 41748 COMBINED COMBINED HYDROXY 6 PHYSICIAN PHYSICIAN INCLUDES S LA S LA FRACTIONS IF PERFORMED LIPID 55571 COMBINED COMBINED PANEL 6 PHYSICIAN PHYSICIAN S LA S LA Encounters Encounter Start End Date Code Location Performer Type Date OFFICE 38476 [facility] 7 7 [facility] T VISIT INTERNAL 15 MED MINUTES OFFICE 13968 [facility] 7 7 VALLEY T VISIT INTERNAL 15 MED MINUTES OFFICE 41352 [facility] OUT[facility] 7 7 PHYSICIAN T VISIT S GROUP 10 MINUTES
--- OUTSIDE RECORDS SUMMARY | 2017-06-21 11:43 | External Medical Summary Rpt | CCD ---
Author Author , ANIKET MARCIAL Address Unknown Phone [email or web address] Care Team Providers Care Shot Peen Operator Name Role Phone [employer] Unavailable Unavailable INC, [employer] Unavailable Unavailable INC, [employer] MARY HERNANDEZ Unavailable Unavailable [facility] [place]available [place], [facility] Unavailable Unavailable [place], [facility] [place] [facility], Unavailable Unavailable [facility] Unavailable Unavailable [facility], [facility] PETTE[facility], PETTEWendie Unavailable Unavailable Purpose Continuity of Care Document - 06-26-2016 through 2016 Problems Code Diagnosis DOS Provider Status [id number] RADICULOPAT 05-13-2017 [facility] INTERNAL MED M797 FIBROMYALGI 05-13-2017 [facility] MED Z23 ENCOUNTER 05-13-2017 [facility] IMMUNIZATIO INTERNAL N MED J029 ACUTE 01-07-2017 [facility] INTERNAL UNSPECIFIED MED D649 ANEMIA 12-17-2016 [facility] UNSPECIFIED PHYSICIANS [place] E559 VITAMIN D 12-17-2016 [facility] DEFICIENCY PHYSICIANS UNSPECIFIED LA E785 HYPERLIPIDE 12-17-2016 COMBIN[facility] BILL PHYSICIANS UNSPECIFIED LA [id number] OTHER 11-06-2016 [facility] TE[employer]IE AND S INC TENOSYNOVIT IS LEFT HAND M654 RADIAL 10-28-2016 [facility] TENOSYNOVIT GROUP IS DE [...] 82 3- 9- 00 00 UC ve [place] 12 20 20 89 [place] L 00 [...] 09 09 30 30 00 KE Ac WA 37 -0 -2 .0 00 NT ti [...] 08 09 30 30 00 KE Ac WA 37 -0 -0 .0 00 NT ti [...] 82 6- 1- 00 00 UC ve [place] 12 20 20 89 [place] L 00 [...] 82 9- 4- 00 00 UC ve MN 12 20 20 89 [place] L 00 17 17 51 ER 1 83 CV S 12 PH 0 AR MG MA CY TA BL LL ET C, DB A CV S PH AR MA CY #0 54 37 BU 10 07 08 30 30 00 KE Ac WA 37 -0 -0 .0 00 NT ti [...] 06 07 30 30 00 KE Ac WA 37 -1 -0 .0 00 NT ti [...] 20 4- 0- 00 00 UC ve MN 29 20 20 89 [place] L 20 [...] 05 06 30 30 00 KE Ac WA 37 -1 -1 .0 00 NT ti [...] 20 8- 2- 00 00 UC ve MN 29 20 20 87 KY L 20 [...] 04 05 30 30 00 KE Ac WA 37 -1 -0 .0 00 NT ti [...] 20 6- 5- 00 00 UC ve MN 29 20 20 87 KY L 20 [...] 03 04 30 30 00 KE Ac WA 37 -1 -0 .0 00 NT ti [...] 82 8- 1- 00 00 UC ve MN 12 20 20 87 [place] L 00 [...] 1 41 CV CE S TA PH MN AR NO MA PH CY 7. LL [...] 02 03 30 30 00 KE Ac WA 37 -1 -1 .0 00 NT ti [...] 82 8- 3- 00 00 UC ve MN 12 20 20 86 [place] L 00 [...] 01 02 30 30 00 KE Ac WA 37 -1 -1 .0 00 NT ti [...] 82 9- 3- 00 00 UC ve MN 12 20 20 86 [place] L 00 [...] 12 09 29 29 00 KE Ac WA 37 -1 -1 .0 00 NT ti [...] L- ti PA 12 07 MA ve MN 88 20 20 44 RT L 00 16 17 54 SR 1 44 PH AR 12 MA 0 CY MG #5 CA 91 PS UL E LO 68 12 09 29 29 00 [place] Ac SA 18 -0 -0 .0 00 [...] MA CY TA BL #5 ET 91 WA 00 12 01 0. 1 00 KE [...] DOS Code Location Performer Comment IIV4 VACC 38931 [facility] SPLIT 7 [facility] VIRUS 0.5 INTERNAL ML DOS MED FOR IM USE IM ADM 96320 [facility] PRQ ID 7 [facility] SUBQ/IM INTERNAL NJXS 1 MED VACCINE BLOOD 94977 COMBINED COMBINED COUNT 7 PHYSICIAN PHYSICIAN COMPLETE S LA S LA AUTO&AUTO DIFRNTL WBC COMPREHEN 14790 COMBINED COMBINED SIVE 7 PHYSICIAN PHYSICIAN METABOLIC S LA S LA PANEL LIPID 43945 COMBINED COMBINED PANEL 7 PHYSICIAN PHYSICIAN S LA S LA 25 81853 COMBINED COMBINED HYDROXY 7 PHYSICIAN PHYSICIAN INCLUDES S LA S LA FRACTIONS IF PERFORMED WRIST L3807 [employer] 7 TECHNOLOG TECHNOLOG FINGR IES INC IES INC ORTHOS W/O JNT PREFAB CSTM FIT COMPREHEN 53294 COMBINED COMBINED SIVE 6 PHYSICIAN PHYSICIAN METABOLIC S LA S LA PANEL 25 14245 COMBINED COMBINED HYDROXY 6 PHYSICIAN PHYSICIAN INCLUDES S LA S LA FRACTIONS IF PERFORMED LIPID 85066 COMBINED COMBINED PANEL 6 PHYSICIAN PHYSICIAN S LA S LA Encounters Encounter Start End Date Code Location Performer Type Date OFFICE 36715 [facility] 7 7 [facility]LEY T VISIT INTERNAL 15 MED MINUTES OFFICE 00206 [facility] 7 7 VALLEY T VISIT INTERNAL 15 MED MINUTES OFFICE 74972 [facility] OUT[facility] 7 7 PHYSICIAN T VISIT S GROUP 10 MINUTES
--- OUTSIDE RECORDS SUMMARY | 2017-06-21 11:44 | External Medical Summary Rpt ---
Author Author ANIKET Davis, [employer] Address Unknown Phone Unavailable
--- OUTSIDE RECORDS SUMMARY | 2017-06-21 11:44 | External Medical Summary Rpt | CCD ---
Author Author , ANIKET MARCIAL Address Unknown Phone [email or web address] Immunization Name Date Rout CVX Reac Dose Comm Prov Is Faci e tion ent ider Refu lity Give sed n Infl 09-1 0.5 Hist PD20 No PD20 uenz 3-20 mL oric 255 255 a 17 al Quad Info rmat W/Pr ion es - Sour ce Unsp ecif ied PCV1 12-1 Intr 133 999 Hist D200 No D200 3 4-20 amus oric 31 31 16 cula al r Info rmat ion - Sour ce Unsp ecif ied
--- OUTSIDE RECORDS SUMMARY | 2017-06-21 11:44 | External Medical Summary Rpt | CCD ---
Author Author , ANIKET MARCIAL Address Unknown Phone [email or web address] Immunization Name Date Rout CVX Reac Dose [...]
--- NOTE | 2017-06-21 11:57 | Emergency Room Report ---
History of Present Illness Time Seen by 1110 Presenting Problem in Triage Pt arrived:Walked Presenting Problem:STATES THAT SHE FELL GETTING OUT OF THE BATH TUB YESTERDAY AND HIT HER RIGHT SIDE AND BACK ON THE TUB. STATES SHE THEN FELL AGAIN IN THE KITCHEN. STATES THAT SHE DID NOT LOC. Onset of symptoms date/time:/ or onset unknown for:MEDICAL HX UNKNOWN Treatment Prior to Arrival: [employer] Provided by: Sepsis Risk Assessment: Temp: B/P: 139/99 MAP: 112 Pulse: 83 Resp: 18 Recent fever? N Clinical Suspician of Infection? N Mental Status: 1 - Regular (Normal Baseline) Sepsis Risk:Low Sepsis Risk Have you (or family members/close friends) recently traveled outside the [place]? N If Yes, where/when: Have you had exposure to infectious disease within the past month? N TB? Other? Specify: I agree with the above history This is a 56 years old white female who had a history of chronic back pain and back surgery. She claims that when she was getting out of the bathtub yesterday she slipped and fell. She hit her RIGHT ribs on the bath tub. This morning she slipped again in the kitchen and she landed on her lower back. She presented to the ED mainly complaining of the RIGHT side of the chest and upper abdomen area. She denies having shortness of hemoptysis nausea vomiting diarrhea bleeding per rectum. She has a long-standing history of LEFT sciatica pain. She has no weakness or numbness of the lower extremity. She has no loss of metabolic control. Source patient, RN notes reviewed Exam Limitations clinical condition ALLERGIES Coded Allergies: citalopram (From CELEXA) (NERVOUS, INSOMNIA 02/18/16) Home Medications Reported Medications Losartan Potassium (Losartan 100MG) 100 MG PO DAILY Meloxicam (Meloxicam 15MG) 15 MG PO BID #90 BUPROPION HCL (Bupropion XL) 300 MG PO DAILY #30 DULOXETINE HCL (Duloxetine) 60 MG PO DAILY #30 LOSARTAN/HYDROCHLOROTHIAZIDE (Losartan-Hctz 100-25 MG Tab) 1 TAB PO DAILY #90 ERGOCALCIFEROL (VITAMIN D2) (Vitamin D2) 50,000 IUNITS PO DAILY #8 VERAPAMIL HCL (Verapamil ER) 120 MG PO DAILY #30 Tramadol Hcl (Tramadol 50MG) 50 MG PO Q6HP PRN PAIN #120 Gabapentin (Gabapentin 800MG) 800 MG PO Q8 #90 History Medical History General CAD? No Angina: No VA: No Hypertension? Yes Hyperlipidemia? No CHF? No DVT? No PE? No COPD? No Asthma? No Anemia? No GERD? No Gastric ulcers? No GI Bleed? No Hernia? No Thyroid Problems? No Hypothyroidism? No CVA? No Seizures? No Diabetes? No Renal Insuffiency? No End Stage Renal Disease? No UTI? No Stones? No BPH? No GB Disease: Yes Nephritic Syndrome? No Asplenia? No Hepatitis? No Sickle Cell Disease? No Arthritis? No Migraines? No Cataracts? No Glaucoma? No MRSA? No HIV? No TB? No Anxiety? No Depression? No Cancer? No More? 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 Respiratory no symptoms reported Cardiovascular no symptoms reported Gastrointestinal no symptoms reported Genitourinary no symptoms reported. Musculoskeletal see HPI, back pain (lower back and RIGHT ribs) Skin no symptoms reported Psychiatric/Neurological no symptoms reported Physical Exam Vital Signs Vital Signs Date Time Temp Pulse Resp B/P Pulse O2 O2 Flow FiO2 Ox Delivery Rate 06/21 1233 64 20 103/70 94 06/21 1222 20 06/21 1110 83 18 139/99 95 - WBC >12,000 or <4,000 or 10% bands? 2 or more SIRS Criteria Met? B/P:139/99 MAP:112 Creatinine >2.0? UA output<0.5ml/kg/hr for 2 hrs? Platelet count >100,000? Lactate >2.0mmol/1? INR >1.2 or PTT > than 60 sec? Evidence of Organ Dysfunction? Provider documented clinical suspician of infection? N Sepsis Criteria Count: 0 Sepsis Risk: Low Sepsis Risk General Appearance normal appearance, WD/WN Eye Exam - bilateral eye normal exam, bilateral eye PERRL, bilateral eye EOMI Ear, Nose, Throat hearing grossly normal, normal ENT inspection Neck normal inspection, non-tender, supple, full range of motion Respiratory Status Yes: tender on palpation (RIGHT lower ribs). No: respiratory distress, trachea midline, chest symmetrical. Lung Sounds bilateral: normal breath sounds, lungs clear. Cardiovascular normal exam, regular rate/rhythm, no peripheral edema, no gallop, no JVD, no murmur, no rub, normal peripheral pulses Peripheral Pulses Pulses normal Yes Gastrointestinal soft, no guarding, no rebound, tenderness, abdomen is soft abdomen, no guarding no rigidity, with tenderness below the RIGHT lower ribs, positive bowel sounds Rectal normal exam Neurologic alert, lmft II-XII nml as tested, normal exam, oriented x 3 Mental status normal mood/affect Skin intact, normal color, warm/dry Medical Decision Making LABS/Meds/Orders Pt receiving controlled substance in ED? No Results/Orders Laboratory Tests 06/21/17 1220: Sodium 141, Potassium 3.7, Chloride 102, Carbon Dioxide 32, BUN 23 H, Creatinine 1.1 H, Estimated Creat Clear 91, Estimated GFR (MDRD) 52 L, Glucose 102, Calcium 9.1, Total Bilirubin 0.4, AST 15, ALT 30, Alkaline Phosphatase 55, Total Protein 7.0, Albumin 3.2 L, Globulin 3.8 H, Albumin/Globulin Ratio 0.8 L, WBC 11.6 H, RBC 4.35, Hgb 12.9, Hct 38.7, MCV 88.9, RDW 13.0, Plt Count 300, MPV 7.4, Gran % 75.5, Gran # 8.8 H, Lymphocytes % 15.6, Monocytes % 6.3, Eosinophils % 2.0, Basophils % 0.5, Lymphocytes # 1.8, Monocytes # 0.7, Eosinophils # 0.2, Basophils # 0.1, PUBS MCHC 33.2, MCH 29.6 Current Medication Orders Sig/Simon Start time Last Medication Dose Route Stop Time Status Admin Sodium Chloride 10 ML PRN PRN 06/21 1245 AC IV 06/22 1235 Morphine Sulfate 0 .STK-MED ONE 06/21 1218 DC .ROUTE Sodium Chloride 1,000 ML .STK-MED ONE 06/21 1218 DC IV Morphine Sulfate 2 MG ONCE ONE 06/21 1200 DC 06/21 IV 06/21 1201 1222 Sodium Chloride 1,000 ML .Q1H1M 06/21 1200 DC 06/21 IV 06/21 1300 1221 Sodium Chloride 10 ML PRN PRN 06/21 1200 AC IV 06/22 1156 Orders Procedure Date/time Status DIET-NOTHING BY MOUTH 06/21 D Active IV SALINE LOCK 06/[address] ABD/PELVIS REQ 06/21 1152 Complete [id number]-FT-3 VIEWS 06/21 1152 Active LUMBAR SPINE 5 VIEWS 06/21 1152 Active URINALYSIS/COMPLETE 06/21 115 Active CBC WITH AUTO DIFF 06/21 1152 Complete CHEM 12 PROFILE 06/[address] ABD & PELVIS W/ CONTRAST 06/21 UNK Active XRAY/CT/US XRAY/CT/US XRAY chest, rib, L-spine XR interpretation by reviewed by me Xray Results no fracture seen, chest x-ray negative for pneumothorax or hydrothorax, positive RLL atlkectasis . Lumbar no fracture or subluxation. Departure Departure Time of Disposition 1156 Disposition DC Home or Self Care(routine) Clinical Impression Primary Impression: Atelectasis of right lung Secondary Impressions: Lumbar contusion, Rib contusion Condition STABLE Referrals Constantin Mccabe MD (Family) Additional Instructions the radiologist called me withnegative Ct scan I discussed the x ray results withthe patient. 2- need IR 10 times and hour. 3- rest. 4- ice 5- robaxin 6- naprosyn follow up with dr mccabe in am on final x ray results. Dr Whatley Discharge Counseling Counseled pt/family regarding diagnosis, test results, medications/RX, home care, follow up needs Prescriptions Current Visit Scripts Methocarbamol (Robaxin 750MG) 750 MG PO BID #20 TAB Naproxen (Naprosyn 500MG Tab) 500 MG PO Q12HP #14 TAB ED Critical Care Critical Care No If Critical Care minutes are documented, the time involved in the performance of seperately reportable procedures was not counted toward critical care time documented. I directly delivered medical care to this critically ill and/or injured patient. Timely evaluation and treatment was necessary to address the significant organ system(s) dysfunction present in this patient. at 1401
[2017-06-21 12:38] LABS: HEMOGLOBIN 12.9 g/dL (12.2-16.2); LYMPH # 1.8 K/mm3 (0.7-4.5); LYMPH % 15.6 % (10-50.0)
[2017-06-21] MEDS ORDERED: NAPROSYN500 M1 PO (14:01)
[2017-06-21] MEDS ORDERED: ROBAXIN-750750 MG PO (14:01)
[2017-06-21 14:12] VITALS: BP 103/70
--- NOTE | 2017-06-21 15:28 | RADIOLOGY REPORT PS360 ---
CT ABD PELVIS W/ CONTRAST COMPARISON: None HISTORY: Trauma to the abdomen after a fall complaining of abdominal pain TECHNIQUE: Multiple axial scans obtained from hemidiaphragms the pelvic floor and were performed with IV contrast only. Sagittal and coronal reformats were evaluated as well. FINDINGS: There is a small nodular lesion in the left lower lobe posterior basilar segment and this was noted on previous chest film in December 2014 and probably represents a small post inflammatory scar however if there is a smoking history would suggest a follow-up CT scan in 6 months to evaluate for interval stability. The liver spleen stomach and pancreas appear grossly normal. there has been a been previous cholecystectomy. The adrenal glands are normal. The kidneys are normal size and show symmetrical function both appear normal. Small bowel normal. The appendix is normal and retrocecal location. There is moderate stool scattered throughout the colon is mild diffuse diverticulosis of descending and sigmoid colon without diverticulitis. The uterus is normal in size and in the midline. Urinary bladder is normal, is no free fluid in the pelvis. The lumbar spine and bony pelvis appear intact. IMPRESSION: Mild diverticulosis of the descending and sigmoid colon, no evidence of traumatic injury to the abdomen or pelvis.
--- NOTE | 2017-06-21 17:35 | RADIOLOGY REPORT PS360 ---
[id number] VIEWS COMPARISON: Right ribs 08/04/2014 HISTORY: Right chest wall pain after falling in bathtub TECHNIQUE: PA chest and oblique views of the right ribs FINDINGS: This is a somewhat poor inspiration and there is discoid atelectasis at the right base. All the right ribs 1 through 12 are visualized and I see no acute fracture. Cardiac size is normal. There is mild degenerative change of the thoracic spine. IMPRESSION: Poor inspiration minimal right basilar atelectasis, no definite acute right rib fracture seen
--- NOTE | 2017-06-21 17:38 | RADIOLOGY REPORT PS360 ---
LUMBAR SPINE 5 VIEWS COMPARISON: HISTORY: Low back pain after a fall in the bathtub TECHNIQUE: AP lateral and oblique views and spot view lumbar sacral junction FINDINGS: There is normal curvature and alignment. All lumbar vertebrae appear intact with no compression fracture seen. Disc spaces are well maintained throughout. There is no pars defect. SI joints are normal. There is contrast in both collecting systems and both ureters from the CT scan performed prior to the study. The urinary bladder appears grossly normal. There are minor degenerative change at the T11-12 and T12-L1 level. Impression: Minor degenerative changes thoracolumbar junction otherwise negative lumbar spine
[2017-06-30] MEDS ORDERED: VITAMIN B COMPL1 CAP PO (11:36)
== END 2017-06-21 14:12 | disposition home or self-care (01) ==
LOC: ER 11:06
PROVIDERS: Emergency Medicine
DX: S30.0XXA Contusion of lower back and pelvis, initial encounter (principal); S20.211A Contusion of right front wall of thorax, initial encounter; W18.2XXA Fall in (into) shower or empty bathtub, initial encounter; Y92.012 Bathroom of single-family (private) house as the place of occurrence of the external cause; J98.11 Atelectasis; I10 Essential (primary) hypertension

== ENCOUNTER → 2017-07-10 | Outpatient (CLI) | payer MEDICAID ==
[~2017-07-10] MED LIST changes: +BUPROPION HCL300 MG PO; +DULOXETINE60 MG PO; +GABAPENTIN800 MG PO; +LOSARTAN POTASS1 TA1 PO; +MELOXICAM15 MG PO; +NAPROSYN500 M1 PO; +ROBAXIN-750750 MG PO; +VERAPAMIL HCL120 M2 PO; +VITAMIN B COMPL1 CAP PO; +VITAMIN D50000 I1 PO
--- NOTE | 2017-07-12 10:33 | RADIOLOGY REPORT PS360 ---
MRI-L-SPINE W/O, MRI-3D RENDERING/MYELOGRAM HISTORY: LUMBAR BACK PAIN ORDERING PHYSICIAN: Mitch Velasco MD PATIENT AGE: 56 years COMPARISON: 09/15/2012 TECHNIQUE: Standard multiplanar multiecho sequences are performed without contrast. 3-D MIP and myelographic images are also rendered and reviewed FINDINGS: There is normal alignment. Spinal cord ends at the L1 level. T10-T11: There are hypertrophic changes of the facets on the right causing moderate right lateral recess narrowing. T11-T12: Small anterior osteophytes. T12-L1: Unremarkable. L1-L2: Moderate left-sided facet hypertrophic change with severe left lateral recess narrowing impinging upon the left posterior lateral aspect of the thecal sac and posterior aspect of the L3 nerve root. L2-L3: Mild facet and ligamentum hypertrophic change with mild bilateral lateral recess narrowing. L3-L4: Facet and ligamentum flavum hypertrophy with bilateral lateral recess narrowing right more so than left. L4-5: Bulging disc with facet and ligamentum flavum hypertrophy with moderate bilateral lateral recess and foraminal narrowing. There are small central disc protrusion. There is mild central canal stenosis somewhat worse on today's exam compared to the previous study.. L5-S1: Unremarkable. No fracture or dislocation. No destructive process. IMPRESSION: 1. Lower thoracic and lumbar spondylosis with facet arthropathy along with facet and ligamentum hypertrophy causing moderate right lateral recess narrowing at T10-T11 and severe left lateral recess narrowing at L1-L2 with impingement upon the L3 nerve root. Bilateral lateral recess narrowing at L2-L3 and L3-L4. 2. Bulging disc at L4-L5 with facet and ligamentum flavum hypertrophy with moderate bilateral lateral recess and foraminal narrowing. There are small central disc protrusion. There is mild central canal stenosis somewhat worse on today's exam compared to the previous study..
== END ==
LOC: RAD 08:45
DX: M54.5 Low back pain (principal)

== ENCOUNTER 2017-07-17 09:47 | Day surgery (SDC) | payer MEDICAID ==
[~2017-07-17] VITALS: Ht 157.5 cm; Wt 102.5 kg
[2017-07-17 10:49] VITALS: BP 164/68
[2017-07-17 11:09] VITALS: BP 164/68
[2017-07-17 11:10] VITALS: BP 157/88
--- NOTE | 2017-07-17 11:14 | Procedure Note ---
Procedure detail Date of procedure: 07/17/17 Anesthesiologist: Mitch Velasco M.D. Complications: None Pre-procedure diagnosis: Sacroiliitis Post-procedure diagnosis: Same Indications for procedure: This patient is a pleasant 56-year-old white female who we have seen for low back pain and bilateral hip pain. She has had previous lumbar discectomy/ laminectomy with Dr. Slaughter. She is tender over both SI joints. She does have positive Mattie's test bilaterally. We will do bilateral SI joint injections under fluoroscopy to see if this gives her some benefit. Procedure detail: Bilateral SI joint injections under fluoroscopy. Informed consent was obtained and the risks and benefits of the procedure were explained to the patient. The patient was taken to the procedure room and noninvasive monitors were placed including a noninvasive blood pressure cuff and pulse oximeter. The patient was placed prone on the procedure table. Both hips were cleansed using Betadine as a cleansing solution. C-arm fluoroscopy was used to view the right sacroiliac joint. The skin and subcutaneous tissues were anesthetized using lidocaine 1.5% and a 25-gauge needle. After this, a 22-gauge spinal needle was inserted under fluoroscopic guidance into the inferior aspect of the right sacroiliac joint. Omnipaque dye was injected and good spread was seen throughout the joint. After this, approximately 5 mL of bupivacaine, 0.25% and Depo-Medrol, 40 mg was incrementally injected into the right sacroiliac joint. We then moved to the left sacroiliac joint. The skin and subcutaneous tissues were anesthetized using lidocaine 1.5% and a 25-gauge needle. After this, a 22- gauge spinal needle was inserted under fluoroscopic guidance into the inferior aspect of the left sacroiliac joint. Omnipaque dye was injected and good spread was seen throughout the joint. After this, approximately 5 mL of bupivacaine, 0.25% and Depo-Medrol, 40 mg was incrementally injected into the left sacroiliac joint. The patient tolerated the procedure well with no complications. The patient was observed in the Pain Clinic and then was discharged home neurologically intact. Plan and disposition: We will follow-up with her in 2 weeks. We'll reevaluate her symptoms at that time. at [id number]
[2017-07-17 11:20] VITALS: BP 135/96
== END 2017-07-17 11:21 | disposition home or self-care (01) ==
LOC: PM 09:47
PROC: 3E0U33Z Introduction of Anti-inflammatory into Joints, Percutaneous Approach (ICD-10-PCS; principal; 2017-07-17)
PROC: 3E0U3BZ Introduction of Anesthetic Agent into Joints, Percutaneous Approach (ICD-10-PCS; 2017-07-17)
DX: M46.1 Sacroiliitis, not elsewhere classified (principal)
CPT/HCPCS: G0260; J1030; Q9966

== ENCOUNTER → 2017-08-06 | Outpatient (CLI) | payer MEDICAID ==
--- NOTE | 2017-08-07 15:05 | RADIOLOGY REPORT PS360 ---
DIG MAMM-DX ALEJO W/CAD, US BREAST-LT COMPLETE W/AXILLA US BREAST-RT COMPLETE W/AXILLA COMPARISON: None INDICATION: Palpable abnormality in the left breast ORDERING PHYSICIAN: Constantin Call MD PATIENT AGE: 57 years TECHNIQUE: Standard images performed along with spot compression views and bilateral breast ultrasound FINDINGS: Mostly fatty replaced fibroglandular tissue. There are no previous exams available for comparison. Right breast: There is a 9 mm density in the central aspect of the right breast at the margins are slightly obscured. This is only well seen on the cc view with possible visualization on the MLO view but not in the VALARIE view. Right breast ultrasound: At 6:00 there is an area of slight decreased echogenicity possibly related to a complex cyst. This may be related to the abnormality noted on the mammogram. Left breast: Patient's nodules in the cleavage region of the left breast at the 9:00 area. Despite multiple images this is only well demonstrated on the CC cleavage view measuring approximately 10 mm. This is not well-defined. Left breast ultrasound: Palpable abnormality in the 9:00 region left breast demonstrates increased echogenicity with some decreased echogenicity anteriorly measuring 12 x 10 mm. This may be due to a sebaceous cyst which is inflamed. This does not have the appearance of malignancy. IMPRESSION: Probably benign findings. No convincing evidence of malignancy. Palpable abnormality in the 9:00 region left breast at the cleavage area may be related to an inflamed sebaceous cyst. BI-RADS CATEGORY: 3_Probably Benign-Short Term F/U RECOMMENDED FOLLOWUP: 1. 6 month mammographic and sonographic follow-up of the right breast 2. Clinical correlation with regards to the possible sebaceous cyst in the medial aspect of the left breast. If this does not increase in size clinically then, would recommend sonographic and mammographic follow-up in 6 months (A letter has been sent to the patient regarding results of the study.)
== END ==
LOC: RAD 08:48
DX: Z12.31 Encounter for screening mammogram for malignant neoplasm of breast (principal); N64.4 Mastodynia
CPT/HCPCS: G0204